=== PATIENT | female | born 1990 | race Two or more races ===

== ENCOUNTER 2024-08-04 16:01 | Emergency (ER) | payer MEDICAID, SELFPAY ==
[2024-08-04 16:21] VITALS: BP 160/101; PULSE 83; RESP 16; TEMP 36.8; O2SAT 97; BMI 30.7
--- NOTE | 2024-08-04 17:17 | XR_ITS ---
Examination: PA lateral chest 2 views Activity when upright. On chest 2 views Date and time: August 04, 2024 1735 hours INDICATIONS: Chest pain today. FINDINGS: Normal heart size Retrocardiac gastric hernia. No pneumonia or pulmonary edema Mild osteopenia IMPRESSION: No pneumonia or pulmonary edema
--- NOTE | 2024-08-04 17:17 | XR_ITS ---
Examination: Cervical spine 3 views TECHNIQUE: AP lateral coned of the odontoid cervical spine 3 views Date and time: August 04, 2024, 1740 hours INDICATIONS: Patient fell out of bed today with the neck, neck pain FINDINGS: Adequate alignment cervical vertebral bodies. No cervical fracture. Intact odontoid IMPRESSION: No cervical fracture
--- NOTE | 2024-08-04 17:22 | PD.EDRME ---
Rapid Medical Screening Exam E Arrival date/time: 08/04/24 16:01 This is a 33-year-old female that comes in with complaints of neck and upper chest pain that happened after she jumped onto her bed landing on her stomach. Patient states she felt a snap in her neck and she has had tightness in her neck since. patient states that she has been having shortness of breath. She reports this happened 2 days ago. Patient denies past medical history. Patient denies any head injury. Patient denies any nausea vomiting. I have greeted and performed a focused initial assessment of this patient. Initial appropriate labs ordered at this time. A comprehensive ED assessment and evaluation of the patient and analysis of all test and completion of medical decision making process will be conducted by additional ED provider. Chief Complaint: Neck Pain/Injury Time Seen by Provider: 08/04/24 16:12 Vital signs: Vital Signs Temperature 98.3 F 08/04/24 16:21 Pulse Rate 83 08/04/24 16:21 Respiratory Rate 16 08/04/24 16:21 Blood Pressure 160/101 H 08/04/24 16:21 Pulse Oximetry (%) 97 08/04/24 16:21 Oxygen Delivery Method Room Air 08/04/24 16:21
--- NOTE | 2024-08-04 19:53 | EDNOTE_ITS ---
ED Neck Injury Pain RME/HPI General Chief Complaint: Neck Pain/Injury Stated Complaint: Neck pain X 3 days Time Seen by Provider: 08/04/24 16:12 Arrival date/time: 08/04/24 16:01 RME / HPI RME / HPI Narrative: 33-year-old female that comes in with complaints of neck and upper chest pain that happened after she jumped onto her bed landing on her stomach. Patient states she felt a snap in her neck and she has had tightness in her neck since. patient states that she has been having shortness of breath. She reports this happened 2 days ago.Patient denies past medical history. Patient denies any head injury. Patient denies any nausea vomiting. Patient is ambulatory. Denies any upper or lower extremity weakness. No medication was taken prior to arrival. Related Data Previous Rx's ?Medication ?Instructions ?Recorded docusate sodium 100 mg capsule 100 mg PO BID postpartu m 30 days 12/26/20 (Colace) #60 caps ibuprofen 600 mg tablet 600 mg PO QID PRN fever or p ain 30 12/26/20 days #60 tabs cyclobenzaprine 10 mg tablet 10 mg PO TID PRN muscle s pasm #30 08/04/24 tabs ibuprofen 800 mg tablet 800 mg PO Q8H PRN pain #30 t abs 08/04/24 Allergies Allergy/AdvReac Type Severity Reaction Status Date / Time No Known Allergies Allergy Verified 08/04/24 16:06 Review of Systems Review of Systems Narrative Review of Systems: Review of system reviewed and within normal limits except mentioned in HPI ED Exam Narrative Physical exam: VITAL SIGNS: Reviewed. GENERAL APPEARANCE: Alert and interactive, follows commands, no acute distress, HEAD AND FACE: Non-traumatic. ENT: PERRL, pink conjunctivitis, eyelid no trauma, Mucous membrane moist. NECK: Supple, posterior neck tenderness no midline tenderness, no nuchal rigidity. CHEST: No tenderness, no crepitus, no paradoxical movement, no retractions. LUNGS: Clear, well ventilated, symmetric, no rales, no wheezing, no ronchi, no stridor, good breath sounds bilaterally. HEART: Regular rate, regular rhythm, no murmur, no gallops. ABDOMEN: Soft, positive bowel sounds, nondistended, no guarding, nontender, no rebound, no masses, RECTAL: Deferred. GENITAL: Deferred. NEUROLOGICAL: Gross motor function intact sensory function intact, Appropriate for age. MUSCULOSKELETAL: low back nontender, full range of motion. EXTREMITIES: Nontender, full range of motion. SKIN: Color pink, dry, no rash, no lacerations, no abrasions, no contusions. LYMPHATICS: Deferred. Course Quality Measures none Orders Category Date Time Status XR cervical spine 2-3V Stat Exams 08/04/24 17:17 Completed XR chest 2V Stat Exams 08/04/24 17:17 Completed Vital Signs Vital signs: Vital Signs Temperature 98.3 F 08/04/24 16:21 Pulse Rate 83 08/04/24 16:21 Respiratory Rate 16 08/04/24 16:21 Blood Pressure 160/101 H 08/04/24 16:21 Pulse Oximetry (%) 97 08/04/24 16:21 Oxygen Delivery Method Room Air 08/04/24 16:21 Neck Pain MDM Narrative MDM Narrative:: 33-year-old female that comes in with complaints of neck and upper chest pain t hat happened after she jumped onto her bed landing on her stomach. Patient states she felt a snap in her neck and she has had tightness in her neck since. patient states that she has been having shortness of breath. She reports this happened 2 days ago.Patient denies past medical history. Patient denies any head injury. Patient denies any nausea vomiting. Patient is ambulatory. Denies any upper or lower extremity weakness. No medication was taken prior to arrival. Patient's x-ray of the cervical spine and chest all came back normal. Results discussed with the patient. Patient is stable for discharge home. Patient data External records reviewed:: None Clinical information provided by:: patient Social determinants that could affect healthcare access:: none Patient has the following chronic illnesses:: None How is presenting disease/condition affected by chronic disease/condition?: no chronic disease Evaluation data The following diagnostics were reviewed and interpreted by me:: radiology exam(s) Lab and/or radiology exams considered but not ordered:: None Interpretation Summary: See results [facility] Medications / Prescriptions Medications or Prescriptions considered but not ordered:: None Medication administrations:: None Consultations Consultation(s) initiated? (list below): No Diagnosis Neck Differential Diagnosis: whiplash injury to neck, cervical radiculopathy and strain of neck muscle Most likely diagnosis given after review of the tests above:: Acute whiplash injury neck Admission Indicated Admission indicated?: not indicated Explain why admission is indicated or not indicated:: Stable Admission Request Was there a request for admission?: No Disposition Plan Disposition Plan: Discharge Discharge Attestation Discharge Attestation: The patient was given an opportunity to ask questions and understood the discharge instructions. Discharge instructions specifically effects, indications for sooner follow up or return to the emergency department, and the expected course of current diagnosis. Patient condition: Stable Discharge Plan Plan Patient Disposition: HOME (Self Care) Discharge Disposition comment: Stable Prescriptions/Referrals Prescriptions/Med Rec: New ibuprofen 800 mg tablet 800 mg PO Q8H PRN (Reason: pain) Qty: 30 0RF cyclobenzaprine 10 mg tablet 10 mg PO TID PRN (Reason: muscle spasm) Qty: 30 0RF No Action ibuprofen 600 mg tablet 600 mg PO QID MDD 4 PRN (Reason: fever or pain) 30 Days Qty: 60 1RF docusate sodium [Colace] 100 mg capsule 100 mg PO BID MDD 2 30 Days Qty: 60 1RF Referrals: Jair Crabtree MD [Primary Care Provider] - In 1 week Problem List Clinical Impression: Whiplash injury to neck Patient/Caregiver Discharge Instructions Discharge Activity: activity as tolerated Education Materials: ED Neck Sprain or Strain Additional Instructions: Thank you for the opportunity for serving you today. You are stable for discharged . You are advised to: Follow-up with your PCP in 1 to 2 days Return to ED for worsening of symptoms Increase oral fluids Take medication as prescribed Print Language: Spanish Stand Alone Forms: Roxanne Award Info., Patient Portal Info Letter HAKAN/ROSA Supervising Physician FANTASMA Supervising Physician: MD Stefanie
[2024-08-04 19:55] VITALS: BP 122/68; PULSE 73; RESP 18; TEMP 36.8; O2SAT 99
== END 2024-08-04 19:57 | disposition home or self-care (01) ==
PROVIDERS: Emergency Provider Emergency Medicine; PCP Family Medicine
DX: S13.4XXA Sprain of ligaments of cervical spine, initial encounter (principal); R07.89 Other chest pain; W22.09XA Striking against other stationary object, initial encounter
CPT/HCPCS: 71046; 72040; 99283